=== PATIENT | male | born 2000 | race Caucasian/White ===

== ENCOUNTER 2022-11-23 18:44 | Emergency (ER) | payer MEDICAID, OTHER, SELFPAY ==
--- NOTE | ~2022-11-23 | US_ITS ---
EXAMINATION: US ABDOMEN LIMITED CLINICAL INFORMATION: Epigastric pain. Question gallstones.. COMPARISON: None available. TECHNIQUE: Real-time imaging of the right upper quadrant abdominal viscera. FINDINGS: PANCREAS: Obscured by overlying bowel gas. LIVER: Normal. The liver is normal in size. The liver contour is normal. Parenchymal echogenicity is normal. No focal hepatic lesion. There is no intrahepatic biliary duct dilatation seen. GALLBLADDER: Contracted due to patient not fasting however no definite calculi or pericholecystic fluid is appreciated. There was no tenderness to palpation overlying the gallbladder while scanning. COMMON BILE DUCT: Normal in caliber measuring 0.2 cm in diameter. RIGHT KIDNEY: Normal. No hydronephrosis. No renal calculi or focal parenchymal lesions. The kidney measures 9 cm in maximum dimension. FREE FLUID: None. US/US abdomen limited IMPRESSION: No significant abnormality appreciated as described.
[2022-11-23 19:01] VITALS: BP 136/81; PULSE 73; RESP 18; TEMP 36.7; O2SAT 99; BMI 26.6
--- NOTE | 2022-11-23 19:03 | ED.GENADULT ---
HPI - General Adult General Chief complaint: Abdominal Pain <TANNER Campos - Last Filed: 11/24/22 13:03> Stated complaint: Upper abdominal pain <TANNER Campos - Last Filed: 11/24/22 13:03> Time Seen by Provider: 11/23/22 22:00 <TANNER Campos - Last Filed: 11/24/22 13:03> Source: patient, RN notes reviewed and old records reviewed <Deshawn Smith - Last Filed: 11/23/22 22:36> Mode of arrival: ambulatory <Deshawn Smith - Last Filed: 11/23/22 22:36> Limitations: no limitations <Deshawn Smith - Last Filed: 11/23/22 22:36> History of Present Illness HPI narrative: 32-year-old female who denies any past medical history presents for evaluation of upper abdominal pain He reports he did have burning upper abdominal pain for the last 3 days. The pain is worse after eating. He has some nausea without vomiting. The pain radiates up into his chest Denies any previous abdominal surgeries pain No fevers or chills No other complaints or concerns at this time <Deshawn Smith - Last Filed: 11/23/22 22:36> Related Data Home medications: Previous Rx's Medication Instructions Recorded aluminum-mag hydroxide-simethicone 5 ml PO QID PRN indigestion #100 mL 11/23/22 400 mg-400 mg-40 mg/5 mL oral susp (Maalox Maximum Strength) omeprazole 20 mg capsule,delayed 20 mg PO DAILY #14 caps 11/23/22 release ondansetron 4 mg disintegrating 4 mg PO Q8H PRN nausea and 11/23/22 tablet vomiting #20 tabs <TANNER Campos - Last Filed: 11/24/22 13:03> Allergies/adverse reactions: Allergies Allergy/AdvReac Type Severity Reaction Status Date / Time No Known Allergies Allergy Verified 11/23/22 19:00 <TANNER Campos - Last Filed: 11/24/22 13:03> Review of Systems Constitutional: Constitutional: Reports as per HPI, Denies chills, Denies fatigue, Denies fever(s) and Denies headache(s) <Deshawn Smith - Last Filed: 11/23/22 22:36> ENT: Denies headache(s) <Deshawn Mon Last Filed: 11/23/22 22:36> Cardiovascular: Cardiovascular: Denies dyspnea <Deshawn Yaa Last Filed: 11/23/22 22:36> Respiratory: Respiratory: Denies cough and Denies dyspnea <Deshawn Mon Last Filed: 11/23/22 22:36> Gastrointestinal: Gastrointestinal: Reports abdominal pain, Denies constipation, Reports nausea and Denies vomiting <Deshawn Olivia Last Filed: 11/23/22 22:36> Genitourinary: Genitourinary: Denies difficulty urinating and Denies dysuria <Deshawn Yaa Last Filed: 11/23/22 22:36> Neurologic: Denies headache(s) and Denies focal weakness <Deshawn Mon Last Filed: 11/23/22 22:36> Endocrine: Endocrine: Denies fatigue <Deshawn Yaa Last Filed: 11/23/22 22:36> PMFSH Social History Social History: Social History Advance Directives: No Advance Directives Information Provided: No <TANNER Campos - Last Filed: 11/24/22 13:03> Physical Exam ED Vital Signs: Vital Signs - 24 hr 11/23/22 19:01 Temperature 98.1 F Pulse Rate 73 Respiratory Rate 18 Blood Pressure 136/81 Pulse Oximetry 99 Oxygen Delivery Method Room Air BMI result Body Mass Index 26.6 <TANNER Campos - Last Filed: 11/24/22 13:03> Vital Signs - 24 hr 11/23/22 19:01 Temperature 98.1 F Pulse Rate 73 Respiratory Rate 18 Blood Pressure 136/81 Pulse Oximetry 99 Oxygen Delivery Method Room Air BMI result Body Mass Index 26.6 <Deshawn Smith Last Filed: 11/23/22 22:36> Const General: healthy appearing, comfortable, no acute distress, alert and awake <Deshawn Smith Last Filed: 11/23/22 22:36> Nutritional Appearance: well nourished <Deshawn Smith Last Filed: 11/23/22 22:36> Orientation/consciousness: patient oriented x3 < Last Filed: 11/23/22 22:36> HENMT Head: Yes normocephalic and Yes atraumatic < Last Filed: 11/23/22 22:36> Throat: Yes posterior oropharynx normal < Last Filed: 11/23/22 22:36> Eyes Eyelids: Yes eyelids normal < Last Filed: 11/23/22 22:36> Conjunctivae: conjunctivae normal < Last Filed: 11/23/22 22:36> Sclerae: sclerae normal < Last Filed: 11/23/22 22:36> Corneas: corneas normal < Filed: 11/23/22 22:36> Pupils: Equal, round and reactive pupils present < Last Filed: 11/23/22 22:36> EOM: EOMs intact bilaterally < Last Filed: 11/23/22 22:36> Neck Neck: Yes full ROM < Last Filed: 11/23/22 22:36> Resp Effort & Inspection: normal respiratory effort, able to speak in complete sentences, no audible wheezes and not labored < Last Filed: 11/23/22 22:36> Auscultation: clear to auscultation bilaterally < Last Filed: 11/23/22 22:36> Cardio Rate: regular rate < Last Filed: 11/23/22 22:36> Rhythm: regular rhythm < Last Filed: 11/23/22 22:36> GI Inspection: No distended < Filed: 11/23/22 22:36> Palpation (GI): Soft to palpation, not firm, Tenderness to palpation present (GI) in the epigastrum, in the LUQ and in the RUQ, no guarding and not rigid < Last Filed: 11/23/22 22:36> Auscultation: normoactive bowel sounds <Deshawn ContrerasFoard - Last Filed: 11/23/22 22:36> Skin General skin exam: no rashes or lesions noted and elasticity normal <Deshawn Smith - Last Filed: 11/23/22 22:36> Neuro General: patient oriented x3 <Deshawn O'Foard - Last Filed: 11/23/22 22:36> Cranial nerves: Yes CN's II-XII intact bilaterally, Yes Equal, round and reactive pupils present and Yes Bilaterally intact EOM present <Deshawn Smith - Last Filed: 11/23/22 22:36> Cognition (Neuro): normal cognition <Deshawn ContrerasLuis Angel - Last Filed: 11/23/22 22:36> Extrem Other: Moving all extremities well without any obvious deformities <Deshawn ContrerasFoard - Last Filed: 11/23/22 22:36> Course Course Course Narrative: RME: 22 yold male presents to the ED for epigastric pain with no relif with emoprazole. patieint admits to nausea and vomitting. Labs and abdominal ultrasound ordered <TANNER Campos - Last Filed: 11/24/22 13:03> Medications Administered Discontinued Medications Generic Name Dose Route Start Last Admin Trade Name Freq PRN Reason Stop Dose Admin Al Hydroxide/Mg Hydroxide 30 ml 11/23/22 22:11 11/23/22 22:25 Magnesium Hydrox/Alum Hydrox 30 Ml Oral.Susp PO 11/23/22 22:12 30 ml ONCE ONE Administration Lidocaine HCl 15 ml 11/23/22 22:11 11/23/22 22:25 Lidocaine Hcl Viscous 2 % 15 Ml Solution MUCOUS MEM 11/23/22 22:12 15 ml ONCE ONE Administration Ondansetron HCl 4 mg 11/23/22 22:11 11/23/22 22:25 Ondansetron Odt 4 Mg Tab.Rapdis TRANSLINGU 11/23/22 22:12 4 mg ONCE ONE Administration <TANNER Campos - Last Filed: 11/24/22 13:03> Medications Administered Discontinued Medications Generic Name Dose Route Start Last Admin Trade Name Freq PRN Reason Stop Dose Admin Al Hydroxide/Mg Hydroxide 30 ml 11/23/22 22:11 11/23/22 22:25 Magnesium Hydrox/Alum Hydrox 30 Ml Oral.Susp PO 11/23/22 22:12 30 ml ONCE ONE Administration Lidocaine HCl 15 ml 11/23/22 22:11 11/23/22 22:25 Lidocaine Hcl Viscous 2 % 15 Ml Solution MUCOUS MEM 11/23/22 22:12 15 ml ONCE ONE Administration Ondansetron HCl 4 mg 11/23/22 22:11 11/23/22 22:25 Ondansetron Odt 4 Mg Tab.Rapdis TRANSLINGU 11/23/22 22:12 4 mg ONCE ONE Administration <Deshawn Smith - Last Filed: 11/23/22 22:36> Medical Decision Making Medical Decision Making [facility] Narrative: 22-year-old male with no significant past medical history presents for evaluation upper abdominal pain year as minimal tenderness on exam without distention or guarding. Abdomen is soft. The patient has no leukocytosis. He has no significant lab abnormalities. Ultrasound the gallbladder did not show any significant abnormalities including gallstones or evidence of cholecystitis. Patient's pain is most likely related to heartburn culture with a GI cocktail. Patient's lipase level is negative <Deshawn Smith - Last Filed: 11/23/22 22:36> Differential Diagnosis Peptic ulcer disease GERD Gastroenteritis Cholelithiasis Acute cholecystitis Pancreatitis <Deshawn Smith - Last Filed: 11/23/22 22:36> Lab Data [facility] Lab Attestation statement: I reviewed the patient's lab results. <Deshawn Smith - Last Filed: 11/23/22 22:36> Result Diagrams: 11/23/22 21:38 11/23/22 21:38 <TANNER Campos - Last Filed: 11/24/22 13:03> Labs: Lab Results 11/23/22 11/23/22 11/23/22 Range/Units 21:38 21:38 21:38 WBC 7.2 (4.8-10.8) X10*3/uL RBC 4.84 (4.60-5.80) X10*6/uL Hgb 14.2 (14.0-18.0) g/dl Hct 41.6 L (42.0-52.0) % MCV 86.0 (80.0-98.0) fL MCH 29.3 (27.0-33.0) pg MCHC 34.1 (31.0-36.0) g/dl RDW 13.0 (11.0-16.0) % Plt Count 253 (160-400) X10*3/uL MPV 9.6 (9.4-12.4) fL Immature Gran % (Auto) 0.1 (0.0-0.4) % Neut % (Auto) 47.5 (45-73) % Lymph % (Auto) 41.9 H (20-40) % [place] % (Auto) 7.5 (2-11) % Eos % (Auto) 2.6 (0-4) % Baso % (Auto) 0.4 (0-2) % Lymph # (Auto) 3.0 (1.2-4.9) X10*3/uL [place] # (Auto) 0.5 (0.1-1.2) X10*3/uL Eos # (Auto) 0.2 (0.0-0.4) X10*3/uL Baso # (Auto) 0.0 (0.0-0.2) X10*3/uL Abs Immat Gran (auto) 0.01 (0.00-0.03) X10*3/uL Absolute Neuts (auto) 3.4 (2.0-8.3) x10*3/uL Absolute Nucleated RBC 0.000 (0.0-0.012) X10*3/uL Nucleated RBC % (auto) 0.0 (0.0-0.2) /100WBC PT 10.8 (10.0-13.1) SEC INR 0.9 (0.9-1.1) APTT 32.2 (26.0-36.4) SEC Sodium 142 (135-145) mmol/L Potassium 4.3 (3.3-5.1) mmol/L Chloride 106 (96-108) mmol/L Carbon Dioxide 28 (22-29) mmol/L Anion Gap 12 (12-20) BUN 18 H (9-16) mg/dL Creatinine 1.23 (0.5-1.4) mg/dL Estim Creat Clear Calc 78.2 Estimated GFR > 60 Random Glucose 106 (60-115) mg/dL Calcium 9.6 (8.4-10.2) mg/dL Total Bilirubin 0.6 (0.0-1.0) mg/dL AST 26 (5-37) U/L ALT 26 (0-40) U/L Alkaline Phosphatase 123 H (39-117) U/L Total Protein 7.4 (6.5-8.0) g/dL Albumin 4.5 (3.5-5.0) g/dL Lipase 29 (8-78) U/L <TANNER Campos - Last Filed: 11/24/22 13:03> Lab Results 11/23/22 11/23/22 11/23/22 Range/Units 21:38 21:38 21:38 WBC 7.2 (4.8-10.8) X10*3/uL RBC 4.84 (4.60-5.80) X10*6/uL Hgb 14.2 (14.0-18.0) g/dl Hct 41.6 L (42.0-52.0) % MCV 86.0 (80.0-98.0) fL MCH 29.3 (27.0-33.0) pg MCHC 34.1 (31.0-36.0) g/dl RDW 13.0 (11.0-16.0) % Plt Count 253 (160-400) X10*3/uL MPV 9.6 (9.4-12.4) fL Immature Gran % (Auto) 0.1 (0.0-0.4) % Neut % (Auto) 47.5 (45-73) % Lymph % (Auto) 41.9 H (20-40) % [place] % (Auto) 7.5 (2-11) % Eos % (Auto) 2.6 (0-4) % Baso % (Auto) 0.4 (0-2) % Lymph # (Auto) 3.0 (1.2-4.9) X10*3/uL [place] # (Auto) 0.5 (0.1-1.2) X10*3/uL Eos # (Auto) 0.2 (0.0-0.4) X10*3/uL Baso # (Auto) 0.0 (0.0-0.2) X10*3/uL Abs Immat Gran (auto) 0.01 (0.00-0.03) X10*3/uL Absolute Neuts (auto) 3.4 (2.0-8.3) x10*3/uL Absolute Nucleated RBC 0.000 (0.0-0.012) X10*3/uL Nucleated RBC % (auto) 0.0 (0.0-0.2) /100WBC PT 10.8 (10.0-13.1) SEC INR 0.9 (0.9-1.1) APTT 32.2 (26.0-36.4) SEC Sodium 142 (135-145) mmol/L Potassium 4.3 (3.3-5.1) mmol/L Chloride 106 (96-108) mmol/L Carbon Dioxide 28 (22-29) mmol/L Anion Gap 12 (12-20) BUN 18 H (9-16) mg/dL Creatinine 1.23 (0.5-1.4) mg/dL Estim Creat Clear Calc 78.2 Estimated GFR > 60 Random Glucose 106 (60-115) mg/dL Calcium 9.6 (8.4-10.2) mg/dL Total Bilirubin 0.6 (0.0-1.0) mg/dL AST 26 (5-37) U/L ALT 26 (0-40) U/L Alkaline Phosphatase 123 H (39-117) U/L Total Protein 7.4 (6.5-8.0) g/dL Albumin 4.5 (3.5-5.0) g/dL Lipase 29 (8-78) U/L <Deshawn Smith - Last Filed: 11/23/22 22:36> Discharge Plan Discharge Clinical Impression: Abdominal pain <TANNER Campos - Last Filed: 11/24/22 13:03> Patient Disposition: Home, Self-Care <TANNER Campos - Last Filed: 11/24/22 13:03> Instructions: Gastroesophageal Reflux Disease (ED) <TANNER Campos - Last Filed: 11/24/22 13:03> Additional Instructions: Use Zofran as needed for nausea and vomiting. Use Maalox for breakthrough abdominal pain. Take omeprazole daily for the next 2 weeks <TANNER Campos - Last Filed: 11/24/22 13:03> Prescriptions: New ondansetron 4 mg tablet,disintegrating 4 mg PO Q8H PRN (Reason: nausea and vomiting) Qty: 20 0RF alum-mag hydroxide-simeth [Maalox Maximum Strength] 400-400-40 mg/5 mL suspension 5 ml PO QID PRN (Reason: indigestion) Qty: 100 0RF omeprazole 20 mg capsule,delayed release(DR/EC) 20 mg PO DAILY Qty: 14 0RF <TANNER Campos - Last Filed: 11/24/22 13:03> Interventions: ED Discharge Assessment Last Done: 11/23/22 22:42 <TANNER Campos - Last Filed: 11/24/22 13:03> Discharge Date/Time: 11/23/22 22:42 <TANNER Campos - Last Filed: 11/24/22 13:03>
[2022-11-23 21:43] LABS: MANUAL DIFF FLAG NO
[2022-11-23 21:44] LABS: Basophils Percent Auto 0.4 % (0-2); Eosinophils Absolute Auto 0.2 X10*3/uL (0.0-0.4); Eosinophils Percent Auto 2.6 % (0-4); Hematocrit 41.6 % (42.0-52.0); Hemoglobin 14.2 g/dl (14.0-18.0); Imm Gran Abs Auto 0.01 X10*3/uL (0.00-0.03); Imm Gran Pct Auto 0.1 % (0.0-0.4); Lymphocytes Percent Auto 41.9 % (20-40); Mean Corpuscular HGB Conc 34.1 g/dl (31.0-36.0); Mean Corpuscular Hemoglobin 29.3 pg (27.0-33.0); Mean Platelet Volume 9.6 fL (9.4-12.4); Monocytes Absolute Auto 0.5 X10*3/uL (0.1-1.2); Monocytes Percent Auto 7.5 % (2-11); Neutrophils Absolute Auto 3.4 x10*3/uL (2.0-8.3); Neutrophils Percent Auto 47.5 % (45-73); Platelet Count 253 X10*3/uL (160-400); Red Blood Count 4.84 X10*6/uL (4.60-5.80); White Blood Count 7.2 X10*3/uL (4.8-10.8)
[2022-11-23 21:52] LABS: INTERNATIONAL NORM RATIO 0.9 (0.9-1.1); Prothrombin Time 10.8 SEC (10.0-13.1)
[2022-11-23 21:55] LABS: Partial Thromboplastin Time 32.2 SEC (26.0-36.4)
[2022-11-23 22:02] LABS: Alanine Aminotransferase 26 U/L (0-40); Albumin Level 4.5 g/dL (3.5-5.0); Alkaline Phosphatase 123 U/L (39-117); Anion Gap 12 (12-20); Aspartate Amino Transferase 26 U/L (5-37); Bilirubin Total 0.6 mg/dL (0.0-1.0); Blood Urea Nitrogen 18 mg/dL (9-16); Calcium 9.6 mg/dL (8.4-10.2); Carbon Dioxide 28 mmol/L (22-29); Chloride 106 mmol/L (96-108); Creatinine Clr Calc Pharmacy 78.2; Estimated Glomerular Filt Rate > 60; Glucose Random 106 mg/dL (60-115); Lipase 29 U/L (8-78); Potassium 4.3 mmol/L (3.3-5.1); Sodium 142 mmol/L (135-145); Total Protein 7.4 g/dL (6.5-8.0)
[2022-11-23] MEDS: Magnesium Hydrox/Alum Hydrox 30 ML ORAL.SUSP PO (22:25)
[2022-11-23] MEDS: Lidocaine HCl Viscous 2 % 15 ML SOLUTION MUCOUS MEM (22:25)
[2022-11-23] MEDS: Ondansetron ODT 4 MG TAB.RAPDIS TRANSLINGU (22:25)
--- NOTE | 2022-11-23 22:30 | PC.NURSE ---
pt medicated per OCT pt requested gingerale- NAD at this time
== END 2022-11-23 22:42 | disposition home or self-care (01) ==
PROVIDERS: Physician Assistant; Emergency Provider Internal Medicine
DX: R10.9 Unspecified abdominal pain (principal); Z79.899 Other long term (current) drug therapy; R11.2 Nausea with vomiting, unspecified
CPT/HCPCS: 36415; 76705; 80053; 83690; 85025; 85610; 85730; 99282; 99283

== ENCOUNTER 2024-11-11 11:42 | Emergency (ER) | payer MEDICAID, OTHER, SELFPAY ==
[2024-11-11 12:00] VITALS: BP 129/75; PULSE 91; RESP 18; TEMP 37.2; O2SAT 98; BMI 31.1
--- NOTE | 2024-11-11 12:05 | ED.GENADULT ---
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 He reports his symptoms started a few days ago. He initially started with a sore throat. He reports he has swelling around his left ear. He has minimal drainage to the ear. Denies sticking anything in the ear. Denies any fevers or chills Related Data Previous Rx's ?Medication ?Instructions ?Recorded aluminum-mag hydroxide-simethicone 5 ml PO QID PRN indigestion #100 mL 11/23/22 400 mg-400 mg-40 mg/5 mL oral susp (Maalox Maximum Strength) omeprazole 20 mg capsule,delayed 20 mg PO DAILY #14 caps 11/23/22 release ondansetron 4 mg disintegrating 4 mg PO Q8H PRN nausea and 11/23/22 tablet vomiting #20 tabs amoxicillin 875 mg-potassium 1 tab PO Q12H #20 tabs 11/11/24 clavulanate 125 mg tablet ciprofloxacin HCl 0.2 % ear drops 5 drp otic (ear) left Q12H 7 days 11/11/24 in a dropperette #14 ea Allergies Allergy/AdvReac Type Severity Reaction Status Date / Time No Known Allergies Allergy Verified 11/11/24 12:03 Review of Systems Constitutional: Constitutional: Denies body ache(s), Denies chills, Denies fever(s) and Reports headache(s) ENT: Denies dry mouth, Reports ear discharge, Reports otalgia, Reports facial pain, Reports headache(s) and Reports sore throat Cardiovascular: Cardiovascular: Denies chest pain Respiratory: Respiratory: Denies cough Gastrointestinal: Gastrointestinal: Denies abdominal pain, Denies nausea and Denies vomiting Musculoskeletal: Musculoskeletal: Denies back pain Integumentary/Breasts: Skin/Breast: Denies rash Neurologic: Reports headache(s) PMFSH Social History Social History Advance Directives: Yes Advance Directives Information Provided: Yes Advance Directives on File: No Physical Exam ED Vital Signs: Vital Signs - 24 hr 11/11/24 12:00 11/11/24 12:38 Temperature 99.0 F 99.0 F Pulse Rate 91 91 Respiratory Rate 18 18 Blood Pressure 129/75 129/75 Pulse Oximetry 98 98 Oxygen Delivery Method Room Air Room Air BMI result Body Mass Index 31.1 Const General: healthy appearing, comfortable, no acute distress, alert and awake Nutritional Appearance: well nourished Orientation/consciousness: patient oriented x3 HENMT Other: Right TM is intact, there is a small, whitish scar at the 4 o'clock position of the TM. No external ear canal edema on right. Left TM is injected, edematous, with middle ear effusion. There is some external ear canal edema and minimal whitish otorrhea. There is no mastoid edema with it was mastoid tenderness. The patient has tenderness with manipulation of the tragus and the pinna on the left. No obvious edema. Oropharynx is erythematous without exudates or abscess Head: Yes normocephalic and Yes atraumatic Throat: Yes posterior oropharynx normal Eyes Eyelids: Yes eyelids normal Conjunctivae: conjunctivae normal Sclerae: sclerae normal Corneas: corneas normal Pupils: Equal, round and reactive pupils present EOM: EOMs intact bilaterally Neck Neck: Yes full ROM Resp Effort & Inspection: normal respiratory effort, able to speak in complete sentences and not labored Skin General skin exam: elasticity normal Neuro General: patient oriented x3 Cranial nerves: Yes Equal, round and reactive pupils present and Yes Bilaterally intact EOM present Cognition (Neuro): normal cognition Extrem Other: Moving all extremities well without any obvious deformities Medical Decision Making Medical Decision Making MDM Narrative: 24-year-old male presents for evaluation of left ear pain, clinically has otitis media with otitis externa. His ear canal is widely patent. We will treat with ciprofloxacin ear drops as well as Augmentin. He has no obvious peritonsillar abscess. We offered strep testing but ultimately this was deferred as he was already being treated with Augmentin for his ear infection. Differential Diagnosis Differential Diagnoses: The differential diagnosis associated with the presentation includes Otitis media Otitis externa Pharyngitis Middle ear effusion Upper respiratory infection Discharge Plan Discharge Clinical Impression: Otitis externa, Otitis media Patient Disposition: Home, Self-Care Instructions: Otitis Externa (ED), Ear Infection (ED) Additional Instructions: Take Augmentin twice daily for the next 10 days. Use the ciprofloxacin ear drops as prescribed. Do not stick anything else in your ear Follow-up with your primary doctor, return for new or worsening symptoms. You may also follow up with Dr. 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 Prescriptions: New amoxicillin-pot clavulanate 875-125 mg tablet 1 tab PO Q12H Qty: 20 0RF ciprofloxacin HCl 0.2 % dropperette 5 drp otic (ear) left Q12H 7 Days Qty: 14 0RF No Action ondansetron 4 mg tablet,disintegrating 4 mg PO Q8H PRN (Reason: nausea and vomiting) Qty: 20 0RF alum-mag hydroxide-simeth [Maalox Maximum Strength] 400-400-40 mg/5 mL suspension 5 ml PO QID PRN (Reason: indigestion) Qty: 100 0RF omeprazole 20 mg capsule,delayed release(DR/EC) 20 mg PO DAILY Qty: 14 0RF Referrals: Hilton Sullivan [Physician] - (left ear pain, otitis media and externa) Interventions: ED Discharge Assessment Last Done: 11/11/24 12:38 Discharge Date/Time: 11/11/24 12:39 Print Language: Mongolian
[2024-11-11 12:38] VITALS: BP 129/75; PULSE 91; RESP 18; TEMP 37.2; O2SAT 98
== END 2024-11-11 12:39 | disposition home or self-care (01) ==
PROVIDERS: Emergency Provider Emergency Medicine
DX: H66.92 Otitis media, unspecified, left ear (principal); H60.92 Unspecified otitis externa, left ear; H92.02 Otalgia, left ear; R51.9 Headache, unspecified; Z79.899 Other long term (current) drug therapy
CPT/HCPCS: 99282; 99283

== ENCOUNTER 2024-11-22 18:37 | Emergency (ER) | payer MEDICAID, OTHER, SELFPAY ==
[2024-11-22 18:41] VITALS: BP 119/78; PULSE 83; RESP 19; TEMP 36.3; O2SAT 98; BMI 25.2
--- NOTE | 2024-11-22 18:44 | ED_ITS ---
HPI - General Adult General Chief complaint: General Medical Stated complaint: ?facial numbing Time Seen by Provider: 11/22/24 21:08 History of Present Illness ED Provider: Clare GATICA narrative: The patient is a generally healthy 24-year-old male. He is originally from [facility]. 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 He says that since last night he feels that there something wrong in the left side of his face. He says that the left side of his face feels somewhat numb and weak. His has noticed that he has blinking LEs with the left eye. He says that when he tried to spit out of the left side of his mouth he felt that his lips did not work quite properly. He says that he had a bit of a headache behind his left ear yesterday. He does not think he has been bitten by a tick recently. However he does work outdoors. He has had no fever, sweats, chills. He has had no numbness or tingling, weakness or burning in any of his extremities. He has had no difficulty walking. Related Data Previous Rx's ?Medication ?Instructions ?Recorded aluminum-mag hydroxide-simethicone 5 ml PO QID PRN indigestion #100 mL 11/23/22 400 mg-400 mg-40 mg/5 mL oral susp (Maalox Maximum Strength) omeprazole 20 mg capsule,delayed 20 mg PO DAILY #14 caps 11/23/22 release ondansetron 4 mg disintegrating 4 mg PO Q8H PRN nausea and 11/23/22 tablet vomiting #20 tabs amoxicillin 875 mg-potassium 1 tab PO Q12H #20 tabs 11/11/24 clavulanate 125 mg tablet ciprofloxacin HCl 0.2 % ear drops 5 drp otic (ear) left Q12H 7 days 11/11/24 in a dropperette #14 ea ciprofloxacin HCl 0.2 % ear drops 5 drp otic (ears) Q12H 7 days #14 11/11/24 in a dropperette ea carboxymethylcellulose sodium 0.5 1 drp ophthalmic-Left QID #15 mL 11/22/24 % eye drops (Refresh Tears) doxycycline monohydrate 100 mg 100 mg PO BID #20 caps 11/22/24 capsule prednisone 20 mg tablet 60 mg (3 x 20 mg) PO DAILY 7 days 11/22/24 #21 tabs valacyclovir 1 gram tablet 1,000 mg PO TID 7 days #21 tabs 11/22/24 Allergies Allergy/AdvReac Type Severity Reaction Status Date / Time No Known Allergies Allergy Verified 11/22/24 18:44 Review of Systems 2 Review of Systems: Yes all other systems are reviewed and are negative [facility] Social History Social History Smoked in Last 30 Days: No Use of substances other than those prescribed or required for medical reasons: No Advance Directives: No Advance Directives Information Provided: No Do you have a plan to hurt others: No Plan Physical Exam ED Vital Signs: Vital Signs - 24 hr 11/22/24 18:41 11/22/24 20:03 11/22/24 22:27 Temperature 97.3 F 98.7 F Pulse Rate 83 80 86 Respiratory Rate 19 18 16 Blood Pressure 119/78 118/71 130/70 Pulse Oximetry 98 98 98 Oxygen Delivery Method Room Air Room Air Room Air 11/22/24 22:48 11/22/24 22:58 Temperature 98.7 F 98.7 F Pulse Rate 86 86 Respiratory Rate 16 16 Blood Pressure 130/70 130/70 Pulse Oximetry 98 98 Oxygen Delivery Method Room Air Room Air BMI result Body Mass Index 25.2 Const Other: The patient looks as though he is an ordinarily healthy 24-year-old. He was awake and alert, pleasant and cooperative. He did not appear in distress. HENMT Other: There may be a very subtle left-sided weakness of the face. This is quite subtle however. He moves his eyebrows fairly equally and his forehead furrows symmetrically. When he puffs out his cheeks he seems able to retain the air against pressure but he feels it is harder on the left side of his mouth. The right ear canal and tympanic membrane were normal. The left ear canal was obscured by cerumen. I removed some cerumen with a curette and had a partial view of the ear canal which I thought was probably normal but it was a suboptimal view. Eyes Other: Pupils are round, equal, and reactive to light, extraocular movements are intact. The blinking of the left eye was distinctly less frequent than the right eye. When the patient closes his eyes forcefully I can partially open his left eye. Neck Other: No cervical adenopathy, the neck is supple and benign Resp Effort & Inspection: normal respiratory effort Auscultation: clear to auscultation bilaterally Cardio Rate: regular rate Rhythm: regular rhythm Heart sounds: S1 normal heart sound present and S2 normal heart sound present Skin Other: Skin is dry and unremarkable Neuro Other: The patient is awake and alert with a normal mental status. His facial exam shows some decreased blinking frequency of the left eye and some slight weakness in closing the left eye. There also has a very slight loss of the left nasolabial fold with smiling compared to the right side. Overall he seems to have some mild left-sided facial weakness. The remainder of his neurological exam is normal. He has symmetrical strength in his extremities. He has no pronator drift. Finger-nose is normal bilaterally. His gait is normal. His mental status is normal. Extrem General: Yes no pedal edema Course Course Course Narrative: RME, this is a rapid medical exam performed by Dharmesh Smith please refer to primary provider for complete H&P- 24 year old male presents for evaluation of left sided facial numbness. He reports that when he spits it comes out only one side. Symptoms started last night. No objective findings in triage including no facial droop noted. CN II-XII intact. Plan for labs, testing Medications Administered Discontinued Medications Generic Name Dose Route Start Last Admin Trade Name Julian PRN Reason Stop Dose Admin Doxycycline Monohydrate 100 mg 11/22/24 21:41 11/22/24 22:06 Doxycycline Monohydrate 100 Mg Capsule PO 11/22/24 21:42 100 mg ONCE ONE Administration Prednisone 60 mg 11/22/24 21:41 11/22/24 22:05 Prednisone 20 Mg Tablet PO 11/22/24 21:42 60 mg ONCE ONE Administration Valacyclovir HCl 1,000 mg 11/22/24 21:41 11/22/24 22:05 Valacyclovir Hcl 1,000 Mg Tablet PO 11/22/24 21:42 1,000 mg ONCE ONE Administration Medical Decision Making Medical Decision Making MDM Narrative: The patient 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 His ability to close his left eye is only minimally compromised and for the most part of the eye seems to close fully when he closes his eyes. The patient will be tested for Lyme disease. 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 He will be started empirically on doxycycline to cover possible Lyme disease. A Lyme titer is pending. He will also be started on valacyclovir and prednisone. I have also sent a prescription for artificial tears. At the moment I do not think he needs to take his left eye shut at night but I reviewed this with his . I asked her to check on him while he is sleeping to see if his eye closes. If she feels his eye is not fully closing they should use the tape provided to close the eye. The patient has a primary care doctor and is advised to call tomorrow morning for a checkup next week. Lab Data 11/22/24 18:54 11/22/24 18:54 Labs: Lab Results 11/22/24 Range/Units 18:54 WBC 7.4 (4.8-10.8) X10*3/uL RBC 5.08 (4.60-5.80) X10*6/uL Hgb 15.0 (14.0-18.0) g/dl Hct 42.9 (42.0-52.0) % MCV 84.4 (80.0-98.0) fL MCH 29.5 (27.0-33.0) pg MCHC 35.0 (31.0-36.0) g/dl RDW 12.9 (11.0-16.0) % Plt Count 369 D (160-400) X10*3/uL MPV 9.0 L (9.4-12.4) fL Immature Gran % (Auto) 0.3 (0.0-0.4) % Neut % (Auto) 47.6 (45-73) % Lymph % (Auto) 43.0 H (20-40) % Rooks % (Auto) 5.4 (2-11) % Eos % (Auto) 3.0 (0-4) % Baso % (Auto) 0.7 (0-2) % Lymph # (Auto) 3.2 (1.2-4.9) X10*3/uL Rooks # (Auto) 0.4 (0.1-1.2) X10*3/uL Eos # (Auto) 0.2 (0.0-0.4) X10*3/uL Baso # (Auto) 0.1 (0.0-0.2) X10*3/uL Abs Immat Gran (auto) 0.02 (0.00-0.03) X10*3/uL Absolute Neuts (auto) 3.5 (2.0-8.3) x10*3/uL Absolute Nucleated RBC 0.000 (0.0-0.012) X10*3/uL Nucleated RBC % (auto) 0.0 (0.0-0.2) /100WBC Sodium 140 (135-145) mmol/L Potassium 3.8 (3.3-5.1) mmol/L Chloride 107 (96-108) mmol/L Carbon Dioxide 26 (22-29) mmol/L Anion Gap 11 L (12-20) BUN 19 H (9-16) mg/dL Creatinine 0.98 (0.5-1.4) mg/dL Estim Creat Clear Calc 107.7 Estimated GFR > 60 Random Glucose 113 (60-115) mg/dL Calcium 10.0 (8.4-10.2) mg/dL Magnesium 2.2 (1.6-2.6) mg/dL Total Bilirubin 0.3 (0.0-1.0) mg/dL AST 35 (5-37) U/L ALT 56 H (0-40) U/L Alkaline Phosphatase 137 H (39-117) U/L Total Protein 8.4 H (6.5-8.0) g/dL Albumin 4.7 (3.5-5.0) g/dL Lipase 32 (8-78) U/L Influenza Type A (PCR) NEGATIVE (Negative) Influenza Type B (PCR) NEGATIVE (Negative) RSV RNA Qual (PCR) NEGATIVE (Negative) SARS-CoV-2 RNA (RT-PCR) NEGATIVE (Negative) S. pyogenes GrpA NOHEMY Negative (Negative) Discharge Plan Discharge Clinical Impression: Murray's palsy Patient Disposition: Home, Self-Care Instructions: Murray Palsy (ED) Additional Instructions: You have a condition commonly referred to as ?Murray's palsy. Murray's palsy is a condition in which the nerve that controls the muscles of the face is not working properly. This can be caused by a viral infection. Additionally in some cases at can be caused by Lyme disease (an infection spread by tick bites). A blood test has been sent to see if you might have Lyme disease. This will take a couple of days. In the meantime you has been started on medications for both Lyme disease and for a possible viral infection. Doxycycline is an antibiotic effective against Lyme disease. Please take this medication 2 times a day. Valacyclovir is an anti-viral medication. Please take this medication 3 times a day. In addition you has been prescribed a steroid medication, prednisone, to help reduce swelling around the nerve which may be causing the nerve to work poorly. When a person has Murray's palsy they have difficulty closing the eye. In your case it is your left eye. I have sent a prescription for artificial tears. Please administer tears to your eye 4 times a day and as needed to make sure that your eye does not get overly dry. Additionally, if you feel that your eye is not fully closing when you were asleep you should tape the eye shut at night. This will help keep the eye moist at night and prevent any damage to the surface of the eye when you are sleeping. Please contact your regular doctor's office tomorrow morning for a follow up appointment next week. Return to the emergency room if you are significantly worse. Prescriptions: New carboxymethylcellulose sodium [Refresh Tears] 0.5 % drops 1 drp ophthalmic-Left QID Qty: 15 0RF prednisone 20 mg tablet 60 mg PO DAILY 7 Days Qty: 21 0RF Rx Instructions: Take 3 tablets by mouth daily for 2 days then take 2 tablets by mouth daily for 3 days. valacyclovir 1 gram tablet 1,000 mg PO TID 7 Days Qty: 21 0RF doxycycline monohydrate 100 mg capsule 100 mg PO BID Qty: 20 0RF No Action ondansetron 4 mg tablet,disintegrating 4 mg PO Q8H PRN (Reason: nausea and vomiting) Qty: 20 0RF alum-mag hydroxide-simeth [Maalox Maximum Strength] 400-400-40 mg/5 mL suspension 5 ml PO QID PRN (Reason: indigestion) Qty: 100 0RF omeprazole 20 mg capsule,delayed release(DR/EC) 20 mg PO DAILY Qty: 14 0RF amoxicillin-pot clavulanate 875-125 mg tablet 1 tab PO Q12H Qty: 20 0RF ciprofloxacin HCl 0.2 % dropperette 5 drp otic (ear) left Q12H 7 Days Qty: 14 0RF ciprofloxacin HCl 0.2 % dropperette 5 drp otic (ears) Q12H 7 Days Qty: 14 0RF Referrals: Lisandra Walker NP [Primary Care Provider] - Interventions: ED Discharge Assessment Last Done: 11/22/24 22:58 Discharge Date/Time: 11/22/24 22:59 Print Language: Sudanese
[2024-11-22 18:57] LABS: MANUAL DIFF FLAG NO
[2024-11-22 19:01] LABS: Basophils Absolute Auto 0.1 X10*3/uL (0.0-0.2); Basophils Percent Auto 0.7 % (0-2); Eosinophils Absolute Auto 0.2 X10*3/uL (0.0-0.4); Hematocrit 42.9 % (42.0-52.0); Imm Gran Abs Auto 0.02 X10*3/uL (0.00-0.03); Imm Gran Pct Auto 0.3 % (0.0-0.4); Lymphocytes Absolute Auto 3.2 X10*3/uL (1.2-4.9); Mean Corpuscular Hemoglobin 29.5 pg (27.0-33.0); Mean Corpuscular Volume 84.4 fL (80.0-98.0); Monocytes Absolute Auto 0.4 X10*3/uL (0.1-1.2); Monocytes Percent Auto 5.4 % (2-11); Neutrophils Absolute Auto 3.5 x10*3/uL (2.0-8.3); Neutrophils Percent Auto 47.6 % (45-73); Platelet Count 369 X10*3/uL (160-400); Red Blood Count 5.08 X10*6/uL (4.60-5.80); Red Cell Distribution Width 12.9 % (11.0-16.0); White Blood Count 7.4 X10*3/uL (4.8-10.8)
[2024-11-22 19:07] LABS: IDNOW Serial# 58CA691E; Strep A Nucleic Acid Negative (Negative)
[2024-11-22 19:16] LABS: Alanine Aminotransferase 56 U/L (0-40); Albumin Level 4.7 g/dL (3.5-5.0); Alkaline Phosphatase 137 U/L (39-117); Anion Gap 11 (12-20); Aspartate Amino Transferase 35 U/L (5-37); Bilirubin Total 0.3 mg/dL (0.0-1.0); Blood Urea Nitrogen 19 mg/dL (9-16); Carbon Dioxide 26 mmol/L (22-29); Chloride 107 mmol/L (96-108); Creatinine Clr Calc Pharmacy 107.7; Estimated Glomerular Filt Rate > 60; Glucose Random 113 mg/dL (60-115); Lipase 32 U/L (8-78); Magnesium 2.2 mg/dL (1.6-2.6); Potassium 3.8 mmol/L (3.3-5.1); Sodium 140 mmol/L (135-145); Total Protein 8.4 g/dL (6.5-8.0)
[2024-11-22 19:42] LABS: Influenza A PCR NEGATIVE (Negative); Influenza B PCR NEGATIVE (Negative); Resp Syncy Virus RNA Qual PCR NEGATIVE (Negative); SARS COV2 PCR INHOUSE NEGATIVE (Negative)
[2024-11-22 20:03] VITALS: BP 118/71; PULSE 80; RESP 18; TEMP 37.1; O2SAT 98
[2024-11-22] MEDS: predniSONE 20 MG TABLET 60 MG PO (22:05)
[2024-11-22] MEDS: valACYclovir HCL 1,000 MG TABLET 1000 MG PO (22:05)
[2024-11-22] MEDS: Doxycycline Monohydrate 100 MG CAPSULE PO (22:06)
[2024-11-22 22:27] VITALS: BP 130/70; PULSE 86; RESP 16; O2SAT 98
[2024-11-22 22:48] VITALS: BP 130/70; PULSE 86; RESP 16; TEMP 37.1; O2SAT 98
[2024-11-22 22:58] VITALS: BP 130/70; PULSE 86; RESP 16; TEMP 37.1; O2SAT 98
[2024-11-24 09:08] LABS: Lyme Abs Screen <0.90 index
== END 2024-11-22 22:59 | disposition home or self-care (01) ==
PROVIDERS: Physician Assistant; Emergency Provider Emergency Medicine; PCP Nurse Practitioner Family
DX: G51.0 Bell's palsy (principal); Z03.818 Encounter for observation for suspected exposure to other biological agents ruled out
CPT/HCPCS: 0241U; 36415; 80053; 83690; 83735; 85025; 86617; 86618; 87651; 99283; 99284